=== PATIENT | female | born 1985 | race Caucasian/White ===

== ENCOUNTER 2016-12-18 22:58 | Inpatient (IN) | payer OTHER ==
[~2016-12-18] VITALS: Ht 175.3 cm; Wt 93.6 kg
[~2016-12-18 22:58] MED LIST: CATAPRES0.1 MG PO; IBUPROFEN800 MG PO; KEPPRA500 MG PO; KLONOPIN1 MG PO; LYRICA75 MG PO; METHADONE10 MG PO; METHADOSE10 MG/1 ML PO; MOTRIN600 MG PO; OXYCONTIN15 MG PO; PROMETHAZINE HC25 M1 PO; TRAMADOL HCL50 MG PO; ULTRAM50 MG PO; ZOFRAN4 MG PO
[2016-12-18 23:22] VITALS: BP 141/73
[2016-12-19] VITALS (34 sets, daily range): BP systolic 103–173; BP diastolic 55–94
[2016-12-19] MEDS ORDERED: METHADONE10 MG/1 M1 PO (03:11)
[2016-12-19] MEDS ORDERED: EXPECTA PRENAT1 EACH PO (03:12)
[2016-12-19] MEDS ORDERED: FLOVENT (03:14)
[2016-12-19] MEDS ORDERED: TYLENOL (03:15)
[2016-12-19 04:12] LABS: EOSINOPHIL (%) 0 % (0-5); HEMATOCRIT 33.9 % (36.0-46.0); IMMATURE GRANULOCYTE (%) 0.7 % (0.0-0.7); IMMATURE GRANULOCYTE COUNT 0.1 K/uL; INSTRUMENT ABS NEUTROPHIL CT 13.4 K/uL; MCH 32.1 PG (29.0-34.0); MCHC 34.5 G/DL (30.0-36.0); MCV 93.1 FL (83-99); MEAN PLAT.VOLUME 10.2 uM^3 (9.5-12.4); MONOCYTE COUNT 0.3 K/uL (0-0.8); NEUTROPHIL (%) 90.2 % (45-76); NEUTROPHIL COUNT 13.4 K/uL (1.8-6.4); PLATELET COUNT 195 K/uL (156-360); RBC DIS.WIDTH-CV 12.9 % (11.8-14.6); RBC DIS.WIDTH-SD 44.5 % (39-53); RED BLOOD COUNT 3.64 M/uL (3.80-5.20); WHITE BLOOD COUNT 14.8 K/uL (4.1-10.2)
[2016-12-19 06:41] LABS: AMPHETAMINES QUANT VALUE 0 NG/ML; BARBITUATES QUANT VALUE 0 NG/ML; BENZODIAZEPINES QUANT VALUE 0 NG/ML; BENZODIAZEPINES, URINE SCREEN Negative (200 ng/mL); OPIATES QUANTITATIVE VALUE 0 NG/ML; PHENCYCLIDINE QUANT VALUE 0 NG/ML
[2016-12-20 02:45] VITALS: BP 110/67
[2016-12-20 06:07] LABS: EOSINOPHIL (%) 0.3 % (0-5); IMMATURE GRANULOCYTE COUNT 0.1 K/uL; INSTRUMENT ABS NEUTROPHIL CT 8.7 K/uL; LYMPHOCYTE COUNT 2.2 K/uL (1.0-2.8); MCH 33.2 PG (29.0-34.0); MCHC 34.3 G/DL (30.0-36.0); MCV 96.8 FL (83-99); MEAN PLAT.VOLUME 10.2 uM^3 (9.5-12.4); MONOCYTE COUNT 0.8 K/uL (0-0.8); NEUTROPHIL (%) 73.2 % (45-76); NEUTROPHIL COUNT 8.7 K/uL (1.8-6.4); PLATELET COUNT 157 K/uL (156-360); RBC DIS.WIDTH-CV 13.5 % (11.8-14.6); RBC DIS.WIDTH-SD 47.7 % (39-53); WHITE BLOOD COUNT 11.8 K/uL (4.1-10.2)
[2016-12-20 07:40] VITALS: BP 139/80
[2016-12-20 11:12] VITALS: BP 140/71
[2016-12-20 15:01] VITALS: BP 132/69
[2016-12-21 07:44] VITALS: BP 126/73
[2016-12-21] MEDS ORDERED: BREAST PUMP MC (11:09)
[2016-12-21 16:08] VITALS: BP 139/74
[2016-12-23 07:21] VITALS: BP 140/84
[2016-12-23] MEDS ORDERED: ENDOCET 5-3251 EACH PO (08:57)
[2016-12-23] MEDS ORDERED: IBUPROFEN800 MG PO (08:57)
== END 2016-12-23 18:30 | disposition home or self-care (01) | DRG 765 ==
LOC: LDRP-OP → 2WEST 22:59 → LDRP-OP 01-25 16:33
PROVIDERS: Advanced Practice Midwife; Obstetrics & Gynecology
DX: O76 Abnormality in fetal heart rate and rhythm complicating labor and delivery (principal); O66.5 Attempted application of vacuum extractor and forceps; O99.324 Drug use complicating childbirth; F11.20 Opioid dependence, uncomplicated; O99.52 Diseases of the respiratory system complicating childbirth; J44.9 Chronic obstructive pulmonary disease, unspecified; O99.02 Anemia complicating childbirth; D50.9 Iron deficiency anemia, unspecified; Z3A.39 39 weeks gestation of pregnancy; Z37.0 Single live birth; O99.89 Other specified diseases and conditions complicating pregnancy, childbirth and the puerperium; G89.29 Other chronic pain; M54.5 Low back pain; G62.9 Polyneuropathy, unspecified; M62.830 Muscle spasm of back; F17.210 Nicotine dependence, cigarettes, uncomplicated; O99.334 Smoking (tobacco) complicating childbirth; Z83.3 Family history of diabetes mellitus
CPT/HCPCS: 74000; 80306 90; 85025; C1755; C1776; G0378; J0690; J1100; J1170; J1885; J2175; J2250; J2270; J2274; J2405; J3010; J7120